=== PATIENT | male | born 1960 | race Caucasian/White ===

== ENCOUNTER 2023-02-12 10:40 | Day surgery (SDC) | payer OTHER ==
[~2023-02-12] VITALS: Ht 177.8 cm; Wt 120.1 kg
[2023-02-12] VITALS (20 sets, daily range): BP systolic 107–133; BP diastolic 62–85
[~2023-02-12 10:40] MED LIST: VENL37.5ER PO
[2023-02-12] MEDS ORDERED: IBUP200 PO (10:56)
[2023-02-12] MEDS ORDERED: ACET500 PO (10:57)
--- NOTE | 2023-02-12 11:57 | NUR ---
GLASSES BROUGHT TO PACU FOR SAFE KEEPING DURING SURGERY. CUSTOM DESIGNER, [place], GIVEN REPORT ABOUT PATIENT'S PTSD HX AND HOW TO HELP HIM W/ ANXIETY UPON WAKING FROM ANESTHESIA.
--- NOTE | 2023-02-12 15:15 | NUR ---
ARRIVAL TO SURGICAL UNIT ASSESSMENT CHARTED. ALERT & PLEASANT. DENIES N/V OR PAIN. SNACKS & DRINKS GIVEN. UNABLE TO MOVE BLE DUE TO SPINAL.
--- NOTE | 2023-02-12 17:30 | NUR ---
UNABLE TO LIFT L LEG ON OWN. EATING DINNER IN BED. REPORTS STARTING TO FEEL AN ACHE. WILL MEDICATE w/ DINNER.
[2023-02-13 03:01] VITALS: BP 147/84
--- NOTE | 2023-02-13 05:19 | NUR ---
SUMMARY NO NEW ISSUES NOTED. PT HAS AMBULATED WELL AND VOIDING WELL. PT PAIN MANAGED WELL. PT CURRENTLY SLEEPING IN NO DISTRESS. CALL LIGHT IN REACH.
[2023-02-13 07:00] LABS: BASOPHILS ABSOLUTE AUTO 0.02 K/mm3 (0.00-0.23); BASOPHILS PERCENT AUTO 0 % (0-2); EOSINOPHILS ABSOLUTE AUTO 0.03 K/mm3 (0.00-0.68); EOSINOPHILS PERCENT AUTO 0 % (0-6); Hematocrit 41.7 % (37.0-53.0); Hemoglobin 14.3 g/dL (13.5-17.5); IMMATURE GRAN ABSOLUTE AUTO 0.07 K/mm3 (0.00-0.10); IMMATURE GRAN PERCENT AUTO 0 % (0-1); LYMPHOCYTES ABSOLUTE AUTO 1.43 K/mm3 (0.84-5.20); LYMPHOCYTES PERCENT AUTO 9 % (21-46); MONOCYTES ABSOLUTE AUTO 0.89 K/mm3 (0.16-1.47); MONOCYTES PERCENT AUTO 5 % (4-13); Mean Corpuscular HGB Conc 34.3 g/dL (31.5-36.5); Mean Corpuscular Volume 90 fL (80-100); Mean Platelet Volume 12.1 fL (9.1-12.4); NEUTROPHILS ABSOLUTE AUTO 14.08 K/mm3 (1.96-9.15); NEUTROPHILS PERCENT AUTO 85 % (41-73); Platelet Count 187 K/mm3 (150-400); RDW Coefficient Variation 12.1 % (11.7-14.2); RDW Standard Deviation 39.8 fL (35.1-46.3); Red Blood Cell Count 4.62 M/mm3 (4.30-5.90); White Blood Cell Count 16.52 K/mm3 (4.00-11.30)
[2023-02-13 07:15] VITALS: BP 133/67
[2023-02-13 07:26] LABS: Bun/Creatinine Ratio 15.8 (12.0-20.0); Calcium, Blood 8.7 mg/dL (8.5-10.1); Creatinine, Blood 0.95 mg/dL (0.60-1.20); Magnesium, Blood 2.1 mg/dL (1.6-2.4); Potassium, Blood 4.4 mmol/L (3.5-5.5)
[2023-02-13] MEDS ORDERED: ASPI81CH PO (10:33)
[2023-02-13] MEDS ORDERED: OXYC5 PO (10:34)
--- NOTE | 2023-02-13 11:03 | NUR ---
DISCHARGE PT HAS CLEARED THERAPY. PAIN WELL CONTROLLED. EATING, DRINKING, & VOIDING WELL. [facility] [employer] [facility] SENT w/ PT. ESCORTED OUT VIA W/C.
== END 2023-02-13 11:07 | disposition home or self-care (01) ==
LOC: ORSCMMR 10:40 → SURS 10:40 → ORSCMMR 10:41 → ORD 11:00 → ORSCMMR 14:00 → SURS 14:45 → ORSCMMR 02-13 11:07
PROVIDERS: Orthopaedic Surgery
PROC: 0SRD0JA Replacement of Left Knee Joint with Synthetic Substitute, Uncemented, Open Approach (ICD-10-PCS; principal; 2023-02-12 12:00)
DX: M17.12 Unilateral primary osteoarthritis, left knee (principal); E66.9 Obesity, unspecified; Z68.38 Body mass index [BMI] 38.0-38.9, adult; Z79.899 Other long term (current) drug therapy
CPT/HCPCS: 36415; 73560-LT; 80048; 83735; 85025; 97110; 97116; 97162; 97530; A9270; C1713; C1776; J0171; J0690; J0735; J1100; J1885; J2250; J2405; J2704; J2795; J3010; J7120

== ENCOUNTER 2023-11-09 11:38 | Emergency (ER) | payer OTHER ==
[~2023-11-09] VITALS: Ht 180.3 cm; Wt 131.5 kg
[~2023-11-09 11:38] MED LIST changes: +ACET500 PO; +ASPI81CH PO; +ELIQUIS5 M2 PO; +IBUP200 PO; +MONT10T; +OXYC5 PO; +SERT25 PO; +XYZAL5 MG PO
[2023-11-09 12:36] LABS: BASOPHILS ABSOLUTE AUTO 0.07 K/mm3 (0.00-0.23); BASOPHILS PERCENT AUTO 1 % (0-2); EOSINOPHILS ABSOLUTE AUTO 0.36 K/mm3 (0.00-0.68); EOSINOPHILS PERCENT AUTO 5 % (0-6); Hematocrit 44.6 % (37.0-53.0); Hemoglobin 15.3 g/dL (13.5-17.5); IMMATURE GRAN ABSOLUTE AUTO 0.03 K/mm3 (0.00-0.10); IMMATURE GRAN PERCENT AUTO 0 % (0-1); LYMPHOCYTES ABSOLUTE AUTO 1.48 K/mm3 (0.84-5.20); LYMPHOCYTES PERCENT AUTO 19 % (21-46); MONOCYTES ABSOLUTE AUTO 0.51 K/mm3 (0.16-1.47); MONOCYTES PERCENT AUTO 6 % (4-13); Mean Corpuscular HGB Conc 34.3 g/dL (31.5-36.5); Mean Corpuscular Volume 91 fL (80-100); NEUTROPHILS ABSOLUTE AUTO 5.53 K/mm3 (1.96-9.15); NEUTROPHILS PERCENT AUTO 69 % (41-73); Platelet Count 177 K/mm3 (150-400); RDW Coefficient Variation 12.3 % (11.7-14.2); RDW Standard Deviation 40.6 fL (35.1-46.3); Red Blood Cell Count 4.93 M/mm3 (4.30-5.90); White Blood Cell Count 7.98 K/mm3 (4.00-11.30)
[2023-11-09 12:45] LABS: Albumin, Blood 3.6 g/dL (3.4-5.0); Bilirubin, Total 0.4 mg/dL (0.1-1.0); Calcium, Blood 8.9 mg/dL (8.5-10.1); Creatinine, Blood 0.87 mg/dL (0.60-1.20); Globulin, Blood 3.6 g/dL (2.2-4.0); Potassium, Blood 4.3 mmol/L (3.5-5.5); Total Protein, Blood 7.2 g/dL (6.4-8.2)
[2023-11-09 12:59] LABS: International Normalized Ratio 0.98; Prothrombin Time Results 10.5 Sec (9.7-11.5)
[2023-11-09 15:03] VITALS: BP 126/82
== END 2023-11-09 15:17 | disposition home or self-care (01) ==
LOC: ER 11:38
PROVIDERS: Student in an Organized Health Care Education/Training Program
DX: I82.501 Chronic embolism and thrombosis of unspecified deep veins of right lower extremity (principal); R06.02 Shortness of breath; Z79.01 Long term (current) use of anticoagulants; Z79.899 Other long term (current) drug therapy; Z88.2 Allergy status to sulfonamides
CPT/HCPCS: 71260; 80053; 85025; 85610; 85730; 93970; Q9967

== ENCOUNTER 2024-08-27 06:53 | Day surgery (SDC) | payer OTHER ==
[2024-08-27] MEDS ORDERED: Heparin Sodium 1000 Units/ML 10ML MDV ONE (07:15)
[2024-08-27] MEDS ORDERED: NS 250 ML IV ONE (07:15)
[2024-08-27] MEDS ORDERED: POLIDOCANOL ONE (08:07)
== END 2024-08-27 23:00 | disposition home or self-care (01) ==
LOC: MHTC 06:53
DX: I87.2 Venous insufficiency (chronic) (peripheral) (principal)
CPT/HCPCS: J1644; J7050

== ENCOUNTER 2024-10-02 08:52 | Day surgery (SDC) | payer OTHER ==
[~2024-10-02] VITALS: Ht 177.8 cm; Wt 132.7 kg
[~2024-10-02 08:52] MED LIST changes: +Balanced Salt Epinephrine Irrigation Solution 500 mL IR SCH; +Diazepam 5 MG Tab PO PRN; +Diazepam 5 MG Tab PO SCH; +Lidocaine HCl/Pf 1% 5 ML VIAL XX SCH; +Moxifloxacin HCL 0.5 MG/0.1 ML 0.4MLSYR LEFTEYE SCH; +Ondansetron 4 MG SoluTab MM PRN; +PHENYLEPHRINE\\TROPICAMIDE\\TETRACAINE OPHTHALMIC DILATING SOLN LEFTEYE PRN; +Povidone-Iodine 450 DROP/30 ML Solution LEFTEYE SCH; +Povidone-Iodine 450 DROP/30 ML Solution ONE; +Tetracaine HCl/Pf 0.5% Opth Soln 4 ml ONE; +Triamcinolone Inj Susp 40 MG / ML 1ML Vial INJ SCH; +Triamcinolone Inj Susp 40 MG / ML 1ML Vial ONE
[2024-10-02] MEDS ORDERED: Diazepam 10 MG Tab ONE (09:19)
[2024-10-02] MEDS ORDERED: THERA-D2000 UNIT PO (09:34)
--- NOTE | 2024-10-02 09:48 | NUR ---
10/02/24 0948 Karolyn Todd PATIENT REPORTS ANXIETY OF 0/10 PRIOR TO ADMINISTRATION OF VALIUM 10MG PO @ 0931. TETRACAINE IN AT 0932, PLEDGETT IN AT 0933. CALL LIGHT IN PLACE. CONTINUOUS SPO2 AND HR MONITORING IN PLACE. JUAN AT BEDSIDE. SPO2 CURRETNLY 97% RA, HR 60BPM
--- NOTE | 2024-10-02 10:25 | NUR ---
10/02/24 Senia5 Rahel Gutierrez BP-140/78 P-61 SPO2-98% ON 10L BLOW BY O2
[2024-10-02 10:42] VITALS: BP 127/75
== END 2024-10-02 11:10 | disposition home or self-care (01) ==
LOC: ORSCSDS 08:52
PROVIDERS: Ophthalmology
PROC: 08RK3JZ Replacement of Left Lens with Synthetic Substitute, Percutaneous Approach (ICD-10-PCS; principal; 2024-10-02 10:30)
DX: H25.813 Combined forms of age-related cataract, bilateral (principal); Z87.891 Personal history of nicotine dependence; Z79.899 Other long term (current) drug therapy
CPT/HCPCS: A9270; J3301; V2632

== ENCOUNTER 2024-10-09 08:30 | Day surgery (SDC) | payer OTHER ==
[~2024-10-09] VITALS: Ht 177.8 cm; Wt 133.7 kg
[~2024-10-09 08:30] MED LIST changes: -Diazepam 5 MG Tab PO PRN; -Diazepam 5 MG Tab PO SCH; -Lidocaine HCl/Pf 1% 5 ML VIAL XX SCH; -Moxifloxacin HCL 0.5 MG/0.1 ML 0.4MLSYR LEFTEYE SCH; +Moxifloxacin HCL 0.5 MG/0.1 ML 0.4MLSYR RIGHTEYE SCH; -PHENYLEPHRINE\\TROPICAMIDE\\TETRACAINE OPHTHALMIC DILATING SOLN LEFTEYE PRN; +PHENYLEPHRINE\\TROPICAMIDE\\TETRACAINE OPHTHALMIC DILATING SOLN RIGHTEYE PRN; -Povidone-Iodine 450 DROP/30 ML Solution LEFTEYE SCH; +Povidone-Iodine 450 DROP/30 ML Solution RIGHTEYE SCH; +THERA-D2000 UNIT PO
--- NOTE | 2024-10-09 09:34 | NUR ---
10/09/24 0934 Karolyn Todd PT REPORTS ANXIETY LEVEL 0/10 PRIOR TO ADMINISTRATION OF VALIUM 10MG PO 24. TETRACAINE IN AT 0926, PLEDGETT IN AT 0927. CALL LIGHT IN PLACE. CONTINUOUS SPO2 AND HR MONITORING IN PLACE. CALL LIGHT IN PLACE.
--- NOTE | 2024-10-09 10:25 | NUR ---
10/09/24 1025 Mary Jane Acosta VITALS AT 1024 BP: 135/89 P: 58 O2: 100% WITH 6 LITERS OF BLOW BY OXYGEN
[2024-10-09 10:43] VITALS: BP 125/76
== END 2024-10-09 11:10 | disposition home or self-care (01) ==
LOC: ORSCSDS 08:30
PROVIDERS: Ophthalmology
PROC: 08RJ3JZ Replacement of Right Lens with Synthetic Substitute, Percutaneous Approach (ICD-10-PCS; principal; 2024-10-09 10:30)
DX: H25.811 Combined forms of age-related cataract, right eye (principal); Z96.1 Presence of intraocular lens; H52.201 Unspecified astigmatism, right eye; Z87.891 Personal history of nicotine dependence; Z79.01 Long term (current) use of anticoagulants; Z79.899 Other long term (current) drug therapy
CPT/HCPCS: A9270; J3301; V2632